=== PATIENT | male | born 1985 | race Caucasian/White ===

== ENCOUNTER 2019-09-25 05:25 | Emergency (ER) | payer MEDICAID, OTHER ==
[~2019-09-25] VITALS: Ht 177.8 cm; Wt 77.0 kg
[~2019-09-25 05:25] MED LIST: NO HOME MEDS
[2019-09-25 06:16] LABS: MEAN CORPUSCULAR HEMOGLOBIN 19.4 PG (27.0-31.0); NEUTROPHILS # (AUTO) 8.1 X10'3 (1.8-7.7)
[2019-09-25 06:18] LABS: BASOPHILS % (AUTO) 0.4 % (0-1); EOSINOPHILS % (AUTO) 0.5 % (0-6); HEMATOCRIT 33.8 % (42.0-52.0); HEMOGLOBIN 10.3 g/dl (14.0-17.9); LYMPHOCYTES # (AUTO) 1.1 X10'3 (1.1-4.8); LYMPHOCYTES % (AUTO) 11.1 % (21-51); MEAN CORPUSCULAR HGB CONC 30.4 g/dL (33.0-36.5); MEAN PLATELET VOLUME 6.4 FL (7.4-10.4); MONOCYTES # (AUTO) 0.4 X10'3 (0-0.9); MONOCYTES % (AUTO) 4.3 % (2-12); NEUTROPHILS % (AUTO) 83.7 % (42-75); PLATELET COUNT 834 X10'3 (140-440); RED BLOOD COUNT 5.28 X10'6 (4.70-6.10); RED CELL DISTRIBUTION WIDTH 22.2 % (11.5-14.5); WHITE BLOOD COUNT 9.7 X10'3 (4.5-11.0)
[2019-09-25 06:19] LABS: ALANINE AMINOTRANSFERASE 90 U/L (12-78); ALBUMIN 2.5 G/DL (3.4-5.0); ALBUMIN/GLOBULIN RATIO 0.7 (1.1-1.5); ALKALINE PHOSPHATASE 129 IU/L (46-116); ANION GAP 10 (8-16); ASPARTATE AMINO TRANSFERASE 97 U/L (10-37); BILIRUBIN,TOTAL 0.5 MG/DL (0.1-1.0); BLOOD UREA NITROGEN 6 MG/DL (7-18); BUN/CREATININE RATIO 5.6 (5.4-32.0); CALCIUM 7.8 MG/DL (8.5-10.1); CHLORIDE 102 MMOL/L (99-107); CREATININE 1.07 MG/DL (0.60-1.10); GLUCOSE 153 MG/DL (70-104); SODIUM 139 MMOL/L (135-145); TOTAL CARBON DIOXIDE 26.9 MMOL/L (24-32); TOTAL PROTEIN 6.1 G/DL (6.4-8.2); eGFR 79 ML/MIN
[2019-09-25] MEDS ORDERED: LORazepam 2 mg/ml vial IV ONE (06:50)
[2019-09-25] MEDS ORDERED: iohexol 350MG/ML 100ml bottle IV ONE (07:08)
[2019-09-25] MEDS ORDERED: mag hydrox/Alum hydrox/simeth 30ml oral suspension PO ONE (07:25)
[2019-09-25 07:48] LABS: FERRITIN 11 NG/ML (26-388)
[2019-09-25 07:49] LABS: C-REACTIVE PROTEIN < 0.05 MG/DL (0.0-0.5)
[2019-09-25] MEDS ORDERED: morphine 4 MG/ML inj SYRINge IV ONE ×2 (08:00→09:20)
[2019-09-25 08:05] LABS: TOTAL CELLS COUNTED 100
[2019-09-25 08:08] LABS: ANISOCYTOSIS 3+; ELLIPTOCYTES FEW; HYPOCHROMASIA 1+; MICROCYTOSIS 2+; PLATELET ESTIMATE INCREASED; POLYCHROMASIA FEW; TEAR DROP CELLS 1+
[2019-09-25 08:09] LABS: STOMATOCYTES FEW
[2019-09-25 08:22] LABS: LIPASE 180 U/L (73-393)
[2019-09-25] MEDS ORDERED: metoclopramide 5 mg/ml inj IV ONE (09:25)
[2019-09-25] MEDS ORDERED: SUCR1TAB34 PO (10:01)
[2019-09-25] MEDS ORDERED: LANS30CA37 PO (10:01)
[2019-09-25 10:19] VITALS: BP 134/88
== END 2019-09-25 10:20 | disposition home or self-care (01) ==
LOC: ER 05:25
DX: R07.89 Other chest pain (principal); R00.0 Tachycardia, unspecified; K20.9 Esophagitis, unspecified; R06.02 Shortness of breath; Z98.890 Other specified postprocedural states; Z56.0 Unemployment, unspecified
CPT/HCPCS: 36415; 71045; 71275; 80053; 82728; 83690; 83880; 84484; 85025; 85379; 86140; 93005; 96374; 96375; 96376; 99285; J2060; J2270; J2765; Q9967

== ENCOUNTER 2020-03-06 22:06 | Emergency (ER) | payer MEDICAID ==
[~2020-03-06] VITALS: Ht 172.7 cm; Wt 79.5 kg
[~2020-03-06 22:06] MED LIST changes: +LANS30CA37 PO; +SUCR1TAB34 PO
[2020-03-06] MEDS ORDERED: levetiracetam 250mg tablet PO ONE (22:15)
[2020-03-06 22:54] VITALS: BP 125/83
== END 2020-03-06 22:56 | disposition home or self-care (01) ==
LOC: ER 22:06
DX: F10.10 Alcohol abuse, uncomplicated (principal); Z86.69 Personal history of other diseases of the nervous system and sense organs; Z56.0 Unemployment, unspecified; Z79.899 Other long term (current) drug therapy; V87.7XXA Person injured in collision between other specified motor vehicles (traffic), initial encounter; Y93.89 Activity, other specified; Y92.481 Parking lot as the place of occurrence of the external cause; Y99.8 Other external cause status; Y90.9 Presence of alcohol in blood, level not specified
CPT/HCPCS: 99283

== ENCOUNTER 2020-08-03 12:54 | Inpatient (IN) | payer MEDICAID ==
[~2020-08-03] VITALS: Ht 182.9 cm; Wt 90.0 kg
[2020-08-03] MEDS ORDERED: thiamine inj. 100 MG in normal saline 100ml IV soln 99 ML IV ONE (13:10)
[2020-08-03] MEDS ORDERED: magnesium 2GM in 50ml NS 50 ML IV ONE (13:10)
[2020-08-03] MEDS ORDERED: phenobarbital inj 260 MG in normal saline 100ml IV soln 100 ML IV ONE (13:10)
[2020-08-03] MEDS ORDERED: normal saline 1000ML IV soln IVB ONE (13:10)
[2020-08-03] MEDS ORDERED: ondansetron/PF 4mg/2ml inj IV ONE (13:10)
[2020-08-03 13:29] LABS: EOSINOPHILS # (AUTO) 0.5 X10'3 (0-0.9); EOSINOPHILS % (AUTO) 5.3 % (0-6); LYMPHOCYTES # (AUTO) 2.1 X10'3 (1.1-4.8); MEAN CORPUSCULAR HEMOGLOBIN 22.1 PG (27.0-31.0)
[2020-08-03 13:31] LABS: BASOPHILS # (AUTO) 0.1 X10'3 (0-0.2); BASOPHILS % (AUTO) 0.9 % (0-1); HEMOGLOBIN 11.8 g/dl (14.0-17.9); LYMPHOCYTES % (AUTO) 24.7 % (21-51); MEAN CORPUSCULAR VOLUME 71.4 FL (78-98); MEAN PLATELET VOLUME 6.6 FL (7.4-10.4); MONOCYTES # (AUTO) 0.2 X10'3 (0-0.9); MONOCYTES % (AUTO) 2.9 % (2-12); NEUTROPHILS # (AUTO) 5.7 X10'3 (1.8-7.7); NEUTROPHILS % (AUTO) 66.2 % (42-75); PLATELET COUNT 601 X10'3 (140-440); RED BLOOD COUNT 5.32 X10'6 (4.70-6.10); RED CELL DISTRIBUTION WIDTH 16.8 % (11.5-14.5); WHITE BLOOD COUNT 8.7 X10'3 (4.5-11.0)
--- NOTE | 2020-08-03 13:35 | NUR ---
BACK FROM CT
[2020-08-03 13:43] LABS: ALANINE AMINOTRANSFERASE 69 U/L (12-78); ALBUMIN 2.8 G/DL (3.4-5.0); ALBUMIN/GLOBULIN RATIO 0.8 (1.1-1.5); ALKALINE PHOSPHATASE 80 IU/L (46-116); ANION GAP 17 (8-16); ASPARTATE AMINO TRANSFERASE 62 U/L (10-37); BILIRUBIN,TOTAL 0.3 MG/DL (0.1-1.0); CALCIUM 7.4 MG/DL (8.5-10.1); CHLORIDE 109 MMOL/L (99-107); GLUCOSE 120 MG/DL (70-104); POTASSIUM 3.2 MMOL/L (3.5-5.1); SODIUM 146 MMOL/L (135-145); TOTAL CARBON DIOXIDE 19.6 MMOL/L (24-32); TOTAL PROTEIN 6.5 G/DL (6.4-8.2)
[2020-08-03 13:50] LABS: BLOOD UREA NITROGEN 4 MG/DL (7-18); BUN/CREATININE RATIO 3.8 (5.4-32.0); CREATININE 1.06 MG/DL (0.60-1.10); TROPONIN I < 0.04 NG/ML (0.0-0.05); eGFR 79 ML/MIN
[2020-08-03 13:54] LABS: ETHANOL 0.584 GM/DL (0.0-0.010)
[2020-08-03 14:24] LABS: CLARITY,URINE CLEAR (Clear); COLOR,URINE YELLOW (Yellow); GLUCOSE, URINE NEGATIVE (Neg); KETONES,URINE NEGATIVE (Neg); LEUKOCYTE ESTERASE ,URINE NEGATIVE (Neg); NITRITES, URINE NEGATIVE (Neg); OCCULT BLOOD,URINE NEGATIVE (Neg); PROTEIN,URINE NEGATIVE (Neg); UROBILINOGEN,URINE 0.2 E.U/dL (0.2-1.0)
[2020-08-03 14:25] LABS: UA COLLECTION TYPE STRAIGHT CATH
[2020-08-03 14:40] LABS: URINE AMPHETAMINE SCREEN NEGATIVE (Neg); URINE BARBITUATE SCREEN NEGATIVE (Neg); URINE BENZODIAZEPINES SCREEN POSITIVE (Neg); URINE CANNABINOID SCREEN NEGATIVE (Neg); URINE COCAINE SCREEN POSITIVE (Neg); URINE METHADONE SCREEN NEGATIVE (Neg); URINE OPIATE SCREEN NEGATIVE (Neg); URINE PHENCYCLIDINE SCREEN NEGATIVE (Neg)
[2020-08-03] MEDS: dextrose 5%-normal saline 1,000 ML IV SCH ×2 (15:14→15:30)
[2020-08-03] MEDS: potassium Cl 10 mEq/100mL bag IV SCH ×2 (15:14→15:15)
--- NOTE | 2020-08-03 15:21 | NUR ---
REPORT GIVEN BY MICKEY RODRIGEZ, ASSUMED CARE. PT SLEEPING IN BED, EVEN CHEST RISE AND FALL. UNABLE TO COLLECT MED REQ PER PT CONDITION AT THIS TIME
--- NOTE | 2020-08-03 18:21 | NUR ---
blood sugar 112
--- NOTE | 2020-08-03 19:13 | NUR ---
[facility], pt's number, . will give pt ride home when needed
[2020-08-03 20:05] LABS: ANION GAP 13 (8-16); BLOOD UREA NITROGEN 4 MG/DL (7-18); BUN/CREATININE RATIO 5.7 (5.4-32.0); CHLORIDE 120 MMOL/L (99-107); GLUCOSE 188 MG/DL (70-104); SODIUM 152 MMOL/L (135-145); TOTAL CARBON DIOXIDE 18.8 MMOL/L (24-32); eGFR > 90 ML/MIN
[2020-08-03 20:11] LABS: CALCIUM 5.2 MG/DL (8.5-10.1); POTASSIUM 2.9 MMOL/L (3.5-5.1)
[2020-08-03] MEDS ORDERED: potassium Cl 20 mEq SR tablet PO STA (20:19)
[2020-08-03] MEDS ORDERED: calcium chloride inj. 1,000 MG in normal saline 100ml IV soln 90 ML IV ONE (20:20)
[2020-08-03] MEDS ORDERED: LORazepam 2 mg/ml vial IV ONE (20:35)
--- NOTE | 2020-08-03 20:54 | NUR ---
PT ABLE TO TOLERATE PO FLUIDS - ASKED FOR MORE WATER
--- NOTE | 2020-08-03 21:19 | NUR ---
pt states he does not take any meds on a daily basis.
[2020-08-03] MEDS ORDERED: magnesium hydroxide 30ml (MOM) UD suspension PO PRN (22:45)
[2020-08-03] MEDS ORDERED: potassium Cl 20 mEq SR tablet PO PRN ×2 (22:45)
[2020-08-03] MEDS ORDERED: potassium Cl 40MEQ/1/2NS 520ml 520 ML IV PRN ×2 (22:45)
[2020-08-03] MEDS ORDERED: mag hydrox/Alum hydrox/simeth 30ml oral suspension PO PRN (22:45)
[2020-08-03] MEDS ORDERED: morphine 2 MG/ML inj. syringe IV PRN (22:45)
[2020-08-03] MEDS ORDERED: acetaminophen 325mg tablet PO PRN (22:45)
[2020-08-03] MEDS: sodium chloride 0.45% 1,000 ML IV SCH (22:50)
[2020-08-03] MEDS: ondansetron/PF 4mg/2ml inj IV PRN (23:02)
[2020-08-03] MEDS: morphine 2 MG/ML inj. syringe IV PRN (23:02)
[2020-08-03 23:07] LABS: LIPASE 65 U/L (73-393)
--- NOTE | 2020-08-04 00:10 | NUR ---
pt resting in bed, even chest rise and fall.
[2020-08-04 02:20] VITALS: BP 133/87
[2020-08-04] MEDS: LORazepam 2 mg/ml vial IV PRN ×5 (02:40→21:08)
[2020-08-04] MEDS: morphine 2 MG/ML inj. syringe IV PRN ×4 (03:36→19:15)
[2020-08-04] MEDS: ondansetron/PF 4mg/2ml inj IV PRN ×2 (04:43→11:07)
[2020-08-04] MEDS ORDERED: FOLI0.4T6 PO (05:44)
[2020-08-04] MEDS ORDERED: FLUT16SP20 BOTHNARES (05:44)
[2020-08-04] MEDS ORDERED: FURO20TA4 PO (05:44)
[2020-08-04] MEDS ORDERED: THIA100T66 PO (05:44)
[2020-08-04] MEDS ORDERED: GABA300C PO (05:44)
[2020-08-04] MEDS ORDERED: HYDR-3686 PO (05:44)
[2020-08-04] MEDS ORDERED: PANT40TA54 PO (05:44)
[2020-08-04] MEDS ORDERED: LISI10TA27 PO (05:44)
--- NOTE | 2020-08-04 06:25 | NUR ---
Problems reprioritized. Patient report given, questions answered & plan of care reviewed with Brittany RODRIGEZ. Addendum: 08/04/20 at 06 by Veronica Weinberg RN Amended: Links added.
--- NOTE | 2020-08-04 06:45 | NUR ---
Patient in room [facility]. I have received report from ELIA GARCIA and had the opportunity to ask questions and assume patient care.
[2020-08-04 06:53] LABS: ALANINE AMINOTRANSFERASE 54 U/L (12-78); ALBUMIN 2.9 G/DL (3.4-5.0); ALBUMIN/GLOBULIN RATIO 0.8 (1.1-1.5); ALKALINE PHOSPHATASE 92 IU/L (46-116); ANION GAP 15 (8-16); ASPARTATE AMINO TRANSFERASE 40 U/L (10-37); BASOPHILS # (AUTO) 0.1 X10'3 (0-0.2); BASOPHILS % (AUTO) 0.4 % (0-1); BILIRUBIN,TOTAL 0.5 MG/DL (0.1-1.0); BLOOD UREA NITROGEN 5 MG/DL (7-18); BUN/CREATININE RATIO 5.7 (5.4-32.0); CALCIUM 8.3 MG/DL (8.5-10.1); CHLORIDE 102 MMOL/L (99-107); CREATININE 0.87 MG/DL (0.60-1.10); EOSINOPHILS % (AUTO) 0.4 % (0-6); GLUCOSE 87 MG/DL (70-104); HEMATOCRIT 35.7 % (42.0-52.0); HEMOGLOBIN 11.3 g/dl (14.0-17.9); LYMPHOCYTES # (AUTO) 1.3 X10'3 (1.1-4.8); LYMPHOCYTES % (AUTO) 9.8 % (21-51); MEAN CORPUSCULAR HEMOGLOBIN 22.1 PG (27.0-31.0); MEAN CORPUSCULAR HGB CONC 31.6 g/dL (33.0-36.5); MEAN PLATELET VOLUME 7.2 FL (7.4-10.4); MONOCYTES # (AUTO) 0.7 X10'3 (0-0.9); MONOCYTES % (AUTO) 5.2 % (2-12); NEUTROPHILS # (AUTO) 10.9 X10'3 (1.8-7.7); NEUTROPHILS % (AUTO) 84.2 % (42-75); PLATELET COUNT 546 X10'3 (140-440); POTASSIUM 3.9 MMOL/L (3.5-5.1); RED CELL DISTRIBUTION WIDTH 16.7 % (11.5-14.5); SODIUM 140 MMOL/L (135-145); TOTAL CARBON DIOXIDE 22.6 MMOL/L (24-32); TOTAL PROTEIN 6.6 G/DL (6.4-8.2); WHITE BLOOD COUNT 12.9 X10'3 (4.5-11.0); eGFR > 90 ML/MIN
[2020-08-04 07:00] VITALS: BP 141/85
[2020-08-04] MEDS: sodium chloride 0.45% 1,000 ML IV SCH (07:54)
[2020-08-04] MEDS: K and/or MAG REPLACEMENT MC SCH ×2 (08:00→20:00)
[2020-08-04] MEDS ORDERED: LORazepam 1 MG tablet PO PRN (10:45)
[2020-08-04 11:00] VITALS: BP 152/89
[2020-08-04 11:15] LABS: CREATINE KINASE 115 U/L (39-308)
[2020-08-04] MEDS ORDERED: hydrOXYzine 25 MG tablet PO PRN (11:25)
[2020-08-04] MEDS ORDERED: metoclopramide 10mg/10 ml UD oral solution PO PRN ×2 (11:55→12:11)
[2020-08-04] MEDS ORDERED: thiamine inj. 100 MG in normal saline 100ml IV soln 100 ML IV SCH (12:30)
[2020-08-04] MEDS ORDERED: folic acid 1mg/0.2ml inj IV SCH (12:30)
--- NOTE | 2020-08-04 18:47 | NUR ---
Problems reprioritized. Patient report given, questions answered & plan of care reviewed with ELIA GARCIA.
[2020-08-04 19:00] VITALS: BP 154/92
[2020-08-04] MEDS: gabapentin 300mg capsule PO SCH (19:15)
[2020-08-05] VITALS: BP 146/89
[2020-08-05] MEDS: morphine 2 MG/ML inj. syringe IV PRN (00:16)
[2020-08-05] MEDS: ondansetron/PF 4mg/2ml inj IV PRN (00:57)
[2020-08-05] MEDS: LORazepam 2 mg/ml vial IV PRN ×2 (01:24→05:13)
[2020-08-05 05:51] LABS: BASOPHILS % (AUTO) 0.3 % (0-1); EOSINOPHILS # (AUTO) 0.1 X10'3 (0-0.9); EOSINOPHILS % (AUTO) 0.5 % (0-6); HEMATOCRIT 30.9 % (42.0-52.0); HEMOGLOBIN 9.7 g/dl (14.0-17.9); LYMPHOCYTES # (AUTO) 1.2 X10'3 (1.1-4.8); LYMPHOCYTES % (AUTO) 9.9 % (21-51); MEAN CORPUSCULAR HEMOGLOBIN 21.6 PG (27.0-31.0); MEAN CORPUSCULAR HGB CONC 31.2 g/dL (33.0-36.5); MEAN CORPUSCULAR VOLUME 69.2 FL (78-98); MEAN PLATELET VOLUME 7.1 FL (7.4-10.4); MONOCYTES # (AUTO) 0.8 X10'3 (0-0.9); MONOCYTES % (AUTO) 6.2 % (2-12); NEUTROPHILS # (AUTO) 10.5 X10'3 (1.8-7.7); NEUTROPHILS % (AUTO) 83.1 % (42-75); PLATELET COUNT 500 X10'3 (140-440); RED BLOOD COUNT 4.47 X10'6 (4.70-6.10); RED CELL DISTRIBUTION WIDTH 17.1 % (11.5-14.5); WHITE BLOOD COUNT 12.7 X10'3 (4.5-11.0)
[2020-08-05 06:11] LABS: ALANINE AMINOTRANSFERASE 35 U/L (12-78); ALBUMIN 2.5 G/DL (3.4-5.0); ALBUMIN/GLOBULIN RATIO 0.7 (1.1-1.5); ALKALINE PHOSPHATASE 92 IU/L (46-116); ANION GAP 8 (8-16); ASPARTATE AMINO TRANSFERASE 20 U/L (10-37); BILIRUBIN,TOTAL 1.4 MG/DL (0.1-1.0); BLOOD UREA NITROGEN 9 MG/DL (7-18); BUN/CREATININE RATIO 9.5 (5.4-32.0); CALCIUM 8.2 MG/DL (8.5-10.1); CHLORIDE 100 MMOL/L (99-107); CREATININE 0.95 MG/DL (0.60-1.10); GLUCOSE 89 MG/DL (70-104); LIPASE 60 U/L (73-393); POTASSIUM 3.8 MMOL/L (3.5-5.1); SODIUM 136 MMOL/L (135-145); TOTAL CARBON DIOXIDE 28.5 MMOL/L (24-32); TOTAL PROTEIN 6.1 G/DL (6.4-8.2); eGFR 90 ML/MIN
[2020-08-05 06:14] LABS: ANISOCYTOSIS 1+; LARGE PLATELETS FEW; MICROCYTOSIS 2+; PLATELET ESTIMATE INCREASED
--- NOTE | 2020-08-05 06:29 | NUR ---
Problems reprioritized. Patient report given, questions answered & plan of care reviewed with Brittany RODRIGEZ. Addendum: 08/05/20 at 06 by Veronica Weinberg RN Amended: Links added.
[2020-08-05 07:00] VITALS: BP 129/86
[2020-08-05] MEDS ORDERED: lisinopril 10 MG tablet PO SCH (08:00)
[2020-08-05] MEDS ORDERED: folic acid 1mg tablet PO SCH (08:00)
[2020-08-05] MEDS ORDERED: atenolol 25mg tablet PO SCH (08:00)
[2020-08-05] MEDS ORDERED: folic acid inj. 2 MG, thiamine inj. 100 MG, MVI, adult No.4 with vit. K 10 ML in dextro... IV SCH ×4 (08:00)
[2020-08-05] MEDS: K and/or MAG REPLACEMENT MC SCH (08:00)
[2020-08-05] MEDS ORDERED: thiamine 100mg tablet PO SCH (08:00)
[2020-08-05] MEDS: gabapentin 300mg capsule PO SCH (09:01)
[2020-08-05 12:00] VITALS: BP 127/73
--- NOTE | 2020-08-05 14:27 | NUR ---
PATIENT STABLE AND APPROPRIATE FOR DISCHARGE, IV TAKEN OUT, EDUCATION GIVEN, ALL BELONGINGS SENT WITH PATIENT, PATIENT ESCORTED TO LOBBY TO AN AWAITING CAR WHERE FAMILY MEMBER WILL TAKE PATIENT HOME
== END 2020-08-05 14:31 | disposition home or self-care (01) | DRG 425 ==
LOC: ER 12:54 → ED HOLD 22:41 → SUR 3N 08-04 02:20
PROVIDERS: ADMIT Internal Medicine; ATTEND Internal Medicine
DX: E87.6 Hypokalemia (principal); E83.51 Hypocalcemia; E87.2 Acidosis; F10.220 Alcohol dependence with intoxication, uncomplicated; F10.239 Alcohol dependence with withdrawal, unspecified; D72.829 Elevated white blood cell count, unspecified
CPT/HCPCS: 36415; 70450; 71045; 71111; 80048; 80053; 80305; 80320; 81003; 82140; 82550; 82948; 83605; 83690; 83735; 84145; 84484; 85008; 85025; 87081; 93005; 96365; 96366; 96367; 96368; 96375; 97116; 97161; 97530; 99285; G0378; J2060; J2270; J2405; J2560; J3411; J3475; J3480; J3490; J7030; J7042; J8597

== ENCOUNTER 2020-08-14 10:19 | Emergency (ER) | payer MEDICAID ==
[~2020-08-14] VITALS: Ht 177.8 cm; Wt 63.6 kg
[~2020-08-14 10:19] MED LIST changes: +FLUT16SP20 BOTHNARES; +FOLI0.4T6 PO; +GABA300C PO; +HYDR-3686 PO; -LANS30CA37 PO; +LISI10TA27 PO; -NO HOME MEDS; +PANT40TA54 PO; -SUCR1TAB34 PO; +THIA100T66 PO
[2020-08-14] MEDS ORDERED: normal saline 1000ML IV soln IVB ONE (10:40)
[2020-08-14] MEDS ORDERED: famotidine/PF 10 mg/ml inj IV ONE (10:40)
[2020-08-14] MEDS ORDERED: ondansetron/PF 4mg/2ml inj IV ONE (10:40)
[2020-08-14] MEDS ORDERED: normal saline 1000ml 1,000 ML IV ONE (10:40)
[2020-08-14 10:58] LABS: BASOPHILS % (AUTO) 0.1 % (0-1); EOSINOPHILS % (AUTO) 0.1 % (0-6); HEMATOCRIT 34.8 % (42.0-52.0); HEMOGLOBIN 10.8 g/dl (14.0-17.9); LYMPHOCYTES # (AUTO) 1.2 X10'3 (1.1-4.8); LYMPHOCYTES % (AUTO) 8.3 % (21-51); MEAN CORPUSCULAR HEMOGLOBIN 20.9 PG (27.0-31.0); MEAN CORPUSCULAR HGB CONC 30.9 g/dL (33.0-36.5); MEAN CORPUSCULAR VOLUME 67.6 FL (78-98); MEAN PLATELET VOLUME 6.8 FL (7.4-10.4); MONOCYTES # (AUTO) 0.8 X10'3 (0-0.9); MONOCYTES % (AUTO) 5.8 % (2-12); NEUTROPHILS # (AUTO) 12.2 X10'3 (1.8-7.7); NEUTROPHILS % (AUTO) 85.7 % (42-75); PLATELET COUNT 319 X10'3 (140-440); RED BLOOD COUNT 5.15 X10'6 (4.70-6.10); RED CELL DISTRIBUTION WIDTH 17.9 % (11.5-14.5); WHITE BLOOD COUNT 14.3 X10'3 (4.5-11.0)
[2020-08-14] MEDS ORDERED: fentaNYL/PF 50MCG/1 ML 2ML syringe IV ONE (11:00)
[2020-08-14] MEDS ORDERED: LORazepam 2 mg/ml vial IV ONE (11:15)
[2020-08-14 11:20] LABS: ALANINE AMINOTRANSFERASE 40 U/L (12-78); ALBUMIN 2.9 G/DL (3.4-5.0); ALBUMIN/GLOBULIN RATIO 0.7 (1.1-1.5); ALKALINE PHOSPHATASE 145 IU/L (46-116); ANION GAP 12 (8-16); ASPARTATE AMINO TRANSFERASE 64 U/L (10-37); BILIRUBIN,TOTAL 0.9 MG/DL (0.1-1.0); BLOOD UREA NITROGEN 11 MG/DL (7-18); BUN/CREATININE RATIO 13.8 (5.4-32.0); CALCIUM 7.8 MG/DL (8.5-10.1); CHLORIDE 98 MMOL/L (99-107); GLUCOSE 122 MG/DL (70-104); POTASSIUM 3.3 MMOL/L (3.5-5.1); SODIUM 139 MMOL/L (135-145); TOTAL PROTEIN 7.2 G/DL (6.4-8.2); eGFR > 90 ML/MIN
[2020-08-14 11:25] LABS: ETHANOL 0.322 GM/DL (0.0-0.010)
[2020-08-14 11:26] LABS: ANISOCYTOSIS 1+; ELLIPTOCYTES FEW; MICROCYTOSIS 2+; PLATELET ESTIMATE NORMAL
[2020-08-14 11:27] LABS: HYPOCHROMASIA 1+; POLYCHROMASIA 1+
[2020-08-14] MEDS ORDERED: morphine 4 MG/ML inj SYRINge IV ONE (13:45)
[2020-08-14] MEDS ORDERED: HYDROcodone/acetaminophen 5mg/325mg tablet PO ONE (14:10)
[2020-08-14 15:09] VITALS: BP 126/90
== END 2020-08-14 14:30 | disposition home or self-care (01) ==
LOC: ER 10:20
DX: F10.129 Alcohol abuse with intoxication, unspecified (principal); K29.20 Alcoholic gastritis without bleeding; R11.2 Nausea with vomiting, unspecified; R10.84 Generalized abdominal pain; E87.6 Hypokalemia; R41.82 Altered mental status, unspecified; Z86.69 Personal history of other diseases of the nervous system and sense organs; Z98.890 Other specified postprocedural states; Z56.0 Unemployment, unspecified; Z79.899 Other long term (current) drug therapy; Y90.0 Blood alcohol level of less than 20 mg/100 ml
CPT/HCPCS: 80053; 80320; 85008; 85025; 96361; 96374; 96375; 99284; J2060; J2405; J3010; J3490; J7030